=== PATIENT | male | born 1985 | race Caucasian/White ===

== ENCOUNTER 2020-04-04 08:55 | Outpatient (CLI) | payer BC, SELFPAY ==
[2020-04-04 10:27] LABS: Alanine Aminotransferase 95 U/L (4-50); Albumin Level 4.5 g/dL (3.5-5.1); Alkaline Phosphatase 95 U/L (38-126); Anion Gap 12 mmol/L (8-16); Aspartate Amino Transferase 47 U/L (17-59); Bilirubin,Total 0.4 mg/dL (0.2-1.3); Blood Urea Nitrogen 11 mg/dL (9-20); Calcium 9.2 mg/dL (8.4-10.2); Carbon Dioxide 25 mmol/L (22-30); Chloride 105 mmol/L (98-107); Cholesterol 225 mg/dL (0-200); Estimated Glomerular Filt Rate > 60; Glucose 104 mg/dL (75-110); HDL Direct 52 mg/dL; Lipase 63 U/L (23-300); Sodium 142 mmol/L (137-145); Triglycerides 113 mg/dL (<150)
[2020-04-04 10:38] LABS: LDL Cholesterol Direct 138 mg/dL
== END 2020-04-04 08:56 | disposition home or self-care (01) ==
PROVIDERS: PCP Internal Medicine; Visit Provider Internal Medicine
DX: R11.10 Vomiting, unspecified (principal); R19.7 Diarrhea, unspecified; Z79.899 Other long term (current) drug therapy; E78.5 Hyperlipidemia, unspecified
CPT/HCPCS: 36415; 80053; 80061; 83690

== ENCOUNTER 2020-04-08 08:21 | Outpatient (CLI) | payer BC, SELFPAY ==
--- NOTE | ~2020-04-08 | XR_ITS ---
EXAMINATION: XR UGIAC w barium swallow EXAM DATE: 04/08/2020 09:03 INDICATION: Episodes of vomiting, diarrhea. TECHNIQUE: Standard single and double contrast barium esophagram and upper GI examination was perform ed. The DAP for this procedure was 2.6 Gycm2. There is no prior study for comparison. FINDINGS: The pharynx is symmetric and without evidence of mass lesion or mucosal irregularity. Ther e is no esophageal stricture, diverticulum or mass identified. Small gastroesophageal hiatal hernia with small amount of reflux demonstrated. The stomach has a normal appearance without evidence of mass lesion, ulceration or filling defect. T here is normal rugal fold pattern. The duodenum and duodenal sweep are normal in appearance. There a re cholecystectomy clips. IMPRESSION: Small gastroesophageal hiatal hernia with small amount of reflux demonstrated. Reviewed, dictated and finalized at location A. IMPRESSION: Small gastroesophageal hiatal hernia with small amount of reflux de monstrated.
== END 2020-04-08 08:22 | disposition home or self-care (01) ==
PROVIDERS: PCP Internal Medicine; Visit Provider Internal Medicine
DX: R11.10 Vomiting, unspecified (principal); K21.9 Gastro-esophageal reflux disease without esophagitis
CPT/HCPCS: 74246

== ENCOUNTER 2021-01-08 09:26 | Outpatient (CLI) | payer BC, SELFPAY ==
[2021-01-08 10:11] LABS: Alanine Aminotransferase 25 U/L (4-50); Albumin Level 4.8 g/dL (3.5-5.1); Alkaline Phosphatase 71 U/L (38-126); Aspartate Amino Transferase 30 U/L (17-59); Bilirubin,Total 0.9 mg/dL (0.2-1.3)
== END 2021-01-08 09:27 | disposition home or self-care (01) ==
PROVIDERS: PCP Internal Medicine; Visit Provider Internal Medicine
DX: R79.89 Other specified abnormal findings of blood chemistry (principal)
CPT/HCPCS: 36415; 80076

== ENCOUNTER 2022-01-12 10:30 | Outpatient (CLI) | payer BC, SELFPAY ==
--- NOTE | 2022-01-12 10:52 | EST_ITS ---
Patient Info Name: Bebeto Ramsey Age: 36 years : 1985 Gender: Male Ht: 68 in Wt: 260 lbs BSA: 2.43 m2 HR: 78 bpm BP: 133 / 93 mmHg Heart Rhythm: Sinus Rhythm Exam Date: 01/12/2022 11:02 AM Exam Location: [facility] ([facility]) Stress Patient Status: Outpatient Admit Date: 01/12/2022 Staff Ordering Physician: Loreto Burch Attending Provider: Loreto Burch Referring Physician: Bradly Love DO; Exercise Technologist: Kim Lott CT Exercise Physician: Ishmael Jo DO Exam Type: CA stress test treadmill Study Info Indications R07.9 - Chest pain, unspecified A treadmill exercise stress test was performed. Summary 1. 1. Negative Sergio exercise stress test for ischemic ST changes by ECG criteria. 2. 2. Good functional capacity, achieving 10 METs of workload. 3. 3. Appropriate HR response to exercise. 4. 4. Appropriate HR recovery at 1 minute post exercise. 5. 5. No imaging with stress testing. 6. 6. Patient informed of the above results. Protocol: Sergio Stress ECG Details Stage: REST Duration (min): 1 min : 2 sec Speed (mph): 0.0 Grade (%): 0 HR (bpm): 77 SBP (mmHg): 133 DBP (mmHg): 93 METS: --- Stage: REST Duration (min): 14 min : 10 sec Speed (mph): 0.0 Grade (%): 0 HR (bpm): 86 SBP (mmHg): 133 DBP (mmHg): 93 METS: --- Stage: STAGE 1 Duration (min): 1 min : 0 sec Speed (mph): 1.7 Grade (%): 10 HR (bpm): 99 SBP (mmHg): 133 DBP (mmHg): 93 METS: --- Stage: STAGE 1 Duration (min): 2 min : 0 sec Speed (mph): 1.7 Grade (%): 10 HR (bpm): 110 SBP (mmHg): 133 DBP (mmHg): 93 METS: --- Stage: STAGE 1 Duration (min): 3 min : 0 sec Speed (mph): 1.7 Grade (%): 10 HR (bpm): 113 SBP (mmHg): 153 DBP (mmHg): 74 METS: --- Stage: STAGE 2 Duration (min): 1 min : 0 sec Speed (mph): 2.5 Grade (%): 12 HR (bpm): 120 SBP (mmHg): 153 DBP (mmHg): 74 METS: --- Stage: STAGE 2 Duration (min): 2 min : 0 sec Speed (mph): 2.5 Grade (%): 12 HR (bpm): 129 SBP (mmHg): 160 DBP (mmHg): 72 METS: --- Stage: STAGE 2 Duration (min): 3 min : 0 sec Speed (mph): 2.5 Grade (%): 12 HR (bpm): 134 SBP (mmHg): 160 DBP (mmHg): 72 METS: --- Stage: STAGE 3 Duration (min): 1 min : 0 sec Speed (mph): 3.4 Grade (%): 14 HR (bpm): 144 SBP (mmHg): 186 DBP (mmHg): 73 METS: --- Stage: STAGE 3 Duration (min): 2 min : 0 sec Speed (mph): 3.4 Grade (%): 14 HR (bpm): 154 SBP (mmHg): 186 DBP (mmHg): 73 METS: --- Stage: STAGE 3 Duration (min): 3 min : 0 sec Speed (mph): 3.4 Grade (%): 14 HR (bpm): 163 SBP (mmHg): 190 DBP (mmHg): 86 METS: --- Stage: STAGE 4 Duration (min): 0 min : 10 sec Speed (mph): 4.2 Grade (%): 16 HR (bpm): 166 SBP (mmHg): 190 DBP (mmHg): 86
[2022-01-12 12:41] LABS: Alanine Aminotransferase 43 U/L (6-50); Albumin Level 5.3 g/dL (3.5-5.1); Alkaline Phosphatase 74 U/L (38-126); Anion Gap 16 mmol/L (8-16); Aspartate Amino Transferase 38 U/L (17-59); Bilirubin,Total 0.9 mg/dL (0.2-1.3); Blood Urea Nitrogen 13 mg/dL (9-20); Calcium 9.4 mg/dL (8.4-10.2); Carbon Dioxide 18 mmol/L (22-30); Chloride 104 mmol/L (98-107); Cholesterol 321 mg/dL (0-200); Estimated Glomerular Filt Rate > 60; Glucose 113 mg/dL (65-110); HDL Direct 63 mg/dL; Potassium 4.1 mmol/L (3.4-5.0); Sodium 138 mmol/L (137-145); Triglycerides 221 mg/dL (<150)
[2022-01-12 12:52] LABS: LDL Cholesterol Direct 195 mg/dL
== END 2022-01-12 10:31 | disposition home or self-care (01) ==
LOC: ANHCARD 10:33
PROVIDERS: PCP Internal Medicine; Referring Provider Internal Medicine; Visit Provider Nurse Practitioner
DX: E78.5 Hyperlipidemia, unspecified (principal); Z13.6 Encounter for screening for cardiovascular disorders; R07.9 Chest pain, unspecified
CPT/HCPCS: 36415; 80053; 80061; 93017

== ENCOUNTER 2024-04-24 10:16 | Outpatient (CLI) | payer BC, SELFPAY ==
[2024-04-24 10:52] LABS: Basophils Absolute Auto 0.1 K/mm3 (0.0-0.1); Basophils Percent Auto 0.8 % (0.2-1.2); Eosinophils Absolute Auto 0.2 K/mm3 (0-0.3); Eosinophils Percent Auto 3.1 % (0-4.4); Hematocrit 46.3 % (42.0-52.0); Hemoglobin 16.1 g/dL (14.0-18.0); Immature Granulocyte Absolute 0.02 K/mm3 (0.00-0.031); Immature Granulocyte Percent A 0.3 % (0-0.5); Lymphocytes Absolute Auto 1.83 K/mm3 (0.9-3.2); Lymphocytes Percent Auto 30.2 % (18.3-44.2); Mean Corpuscular HGB Conc 34.8 g/dl (32-36); Mean Corpuscular Hemoglobin 31.6 pg (26-34); Mean Platelet Volume 9.2 fl (7.4-10.4); Monocytes Absolute Auto 0.5 K/mm3 (0.1-0.6); Monocytes Percent Auto 7.8 % (2.6-8.5); Neutrophils Absolute Auto 3.5 K/mm3 (1.3-6.7); Neutrophils Percent Auto 57.8 % (45.5-73.1); Platelet Count Result 241 k/mm3 (150-375); Red Blood Count 5.09 M/mm3 (4.6-6.20); Red Cell Distribution Width 12.3 % (11.5-14.5); White Blood Count 6.1 K/mm3 (4.5-10.0)
[2024-04-24 11:13] LABS: Add Urine Microscopic? NO; Appearance Urine Clear (Clear); Bilirubin Urine Negative (Negative); Blood Urine Negative (Negative); Color Urine Yellow (Yellow); Glucose Urine UA Negative (Negative); Ketones Urine Negative (Negative); Leukocyte Esterase Ur Negative LEU/UL (Negative); Nitrate Urine Negative (Negative); Protein Urine Negative (Negative); Specific Grav Ur 1.025 (1.001-1.035); Urobilinogen Urine 0.2 mg/dL (<2.0)
[2024-04-24 11:41] LABS: Vitamin D 25 Hydroxy 33.3 ng/mL
[2024-04-24 13:22] LABS: Hemoglobin A1C 5.5 % (<5.7)
[2024-04-24 22:15] LABS: Alanine Aminotransferase 40 U/L (6-50); Albumin Level 4.8 g/dL (3.5-5.1); Alkaline Phosphatase 72 U/L (38-126); Anion Gap 10 mmol/L (4-12); Aspartate Amino Transferase 33 U/L (17-59); Bilirubin,Total 0.5 mg/dL (0.2-1.3); Blood Urea Nitrogen 14 mg/dL (9-20); Calcium 9.3 mg/dL (8.4-10.2); Carbon Dioxide 25 mmol/L (22-30); Chloride 102 mmol/L (98-107); Cholesterol 276 mg/dL (0-200); Estimated Glomerular Filt Rate > 60; Glucose 106 mg/dL (65-110); HDL Direct 50 mg/dL; Potassium 4.2 mmol/L (3.4-5.0); Sodium 137 mmol/L (137-145); Triglycerides 199 mg/dL (<150)
[2024-04-24 22:25] LABS: LDL Cholesterol Direct 167 mg/dL
[2024-04-24 22:45] LABS: Prostate Specific Antigen 0.5 ng/mL (< OR = 4.0)
[2024-04-24 23:21] LABS: Folic Acid 5.9 ng/mL (2.76->20)
[2024-04-26 14:03] LABS: CRP, High Sensitivity 4.1 mg/L
[2024-04-30 12:22] LABS: Testosterone Free 81.9 pg/mL (35.0-155.0); Testosterone Total 502 ng/dL (250-1100)
== END 2024-04-24 10:17 | disposition home or self-care (01) ==
PROVIDERS: PCP Nurse Practitioner Family; Visit Provider Nurse Practitioner Family
DX: Z00.00 Encounter for general adult medical examination without abnormal findings (principal); N40.0 Benign prostatic hyperplasia without lower urinary tract symptoms; R53.83 Other fatigue; E78.5 Hyperlipidemia, unspecified; R30.0 Dysuria; E03.9 Hypothyroidism, unspecified; R73.01 Impaired fasting glucose; Z68.41 Body mass index [BMI] 40.0-44.9, adult; R79.89 Other specified abnormal findings of blood chemistry; Z79.899 Other long term (current) drug therapy; Z82.49 Family history of ischemic heart disease and other diseases of the circulatory system
CPT/HCPCS: 36415; 80053; 80061; 81003; 82306; 82607; 82746; 83036; 84153; 84402; 84403; 84443; 85025; 86141; 87086

== ENCOUNTER 2024-07-22 08:51 | Outpatient (CLI) | payer BC, SELFPAY ==
--- NOTE | 2024-07-22 | ECHO_ITS ---
Patient Info Name: Bebeto Ramsey Age: 39 years : 1985 Gender: Male Ht: 68 in Wt: 265 lbs BSA: 2.46 m2 BP: 147 / 98 mmHg Technical Quality: Good Exam Date: 07/22/2024 10:08 AM Exam Location: Echo Lab Patient Status: Outpatient Admit Date: 07/22/2024 Staff Ordering Physician: Ishmael Jo DO Occupational Therapy Aide: Glenda Burleson RDCS Attending Provider: Ishmael Jo DO Referring Physician: Sandro FERNANDEZ; Exam Type: CA echo doppler color flow Study Info Indications R06.09 - Other forms of dyspnea Complete two-dimensional, color flow and Doppler transthoracic echocardiogram is performed. Strain analysis performed. Summary 1. Complete two-dimensional, color flow and Doppler transthoracic echocardiogram is performed. 2. Left ventricular chamber dimension is normal. 3. Left ventricular systolic function is normal, estimated at 60-65%. 4. There is mild concentric increased left ventricular wall thickness. 5. The left ventricular diastolic function is grade I diastolic dysfunction. 6. E/e' 6 is not elevated. 7. Global longitudinal strain is abnormal at -15.0%. 8. No pulmonary hypertension, estimated pulmonary arterial systolic pressure is 17 mmHg. Left Ventricle E/e' 6 is not elevated. Global longitudinal strain is abnormal at -15.0%. Left ventricular chamber dimension is normal. Left ventricular systolic function is normal, estimated at 60-65%. There is mild concentric increased left ventricular wall thickness. The left ventricular diastolic function is grade I diastolic dysfunction. Right Ventricle Right ventricular chamber dimension is normal. Right ventricular systolic function is normal. Left Atria Left atrial chamber dimension is normal. Right Atria Right atrial chamber dimension is normal. Aortic Valve The aortic valve is trileaflet. There is no aortic valve stenosis. There is no aortic valve regurgitation. Pulmonic Valve There is no pulmonic regurgitation. Mitral Valve There is no mitral valve stenosis. There is no mitral valve regurgitation. Tricuspid Valve There is no tricuspid valve regurgitation. No pulmonary hypertension, estimated pulmonary arterial systolic pressure is 17 mmHg. Pericardium/Pleural There is no pericardial effusion. Inferior Vena Cava Normal inferior vena cava with >50% collapse upon inspiration consistent with normal right atrial pressure, 5 mmHg. Aorta The aortic root size at the sinus of Valsalva is normal. Left Ventricular Outflow Tract Name Value Normal LVOT 2D LVOT Diameter 2.1 cm LVOT Doppler LVOT Peak Gradient 3 mmHg LVOT Mean Gradient 2 mmHg LVOT VTI 15 cm LVOT VTI/AV VTI Ratio 0.9 LVOT Stroke Volume 50 ml LVOT CO 4.5 l/min LVOT CI 1.8 l/min/m2 Pulmonic Valve Name Value Normal RVOT Doppler RVOT Peak Gradient 2 mmHg PV Doppler PV Peak Gradient 4 mmHg Mitral Valve Name Value Normal MV Doppler MV Decel [place] 366 cm/s2 MV PHT 38 ms MV Area (PHT) 5.9 cm2 4.0-5.0 MV Diastolic Function MV E Peak Velocity 47 cm/s MV A Peak Velocity 63 cm/s MV E/A 0.8 MV Decel Time 129 ms Tricuspid Valve Name Value Normal TV Regurgitation Doppler TR Peak Velocity 171 cm/s TR Peak Gradient 12 mmHg Estimated PAP/RSVP RA Pressure 5 mmHg <=5 PA Systolic Pressure 17 mmHg <36 RV Systolic Pressure 17 mmHg <36 Aorta Name Value Normal Ascending Aorta Ao Root Diameter (MM) 3.7 cm Ao Root Diam Index (MM) 1.5 cm/m2 Aortic Valve Name Value Normal AV Doppler AV Peak Velocity 102 cm/s AV Peak Gradient 4 mmHg AV Mean Gradient 2 mmHg AV VTI 17 cm AV Area (Cont Eq VTI) 2.9 cm2 >=3.0 AV Area (Cont Eq Sebas) 2.7 cm2 AV Regurgitation 2D LVOT Area 3.3 cm2 Ventricles Name Value Normal LV Dimensions 2D/MM IVS Diastolic Thickness (2D) 1.2 cm 0.6-1.0 IVS Diastole Thickness (MM) 1.3 cm 0.6-1.0 LVID Diastole (2D) 3.9 cm 4.2-5.8 LVID Diastole (MM) 5.6 cm 4.2-5.8 LVIW Diastolic Thickness (2D) 1.1 cm 0.6-1.0 LVIW Diastolic Thickness (MM) 0.8 cm 0.6-1.0 LVID Systole (2D) 2.5 cm 2.5-4.0 LVID Systole (MM) 3.4 cm 2.5-4.0 LVOT Diameter 2.1 cm LV Mass (2D Cubed) 150.42 g 88.00-224.00 LV Mass Index (2D Cubed) 61 g/m2 49-115 Relative Wall Thickness (2D) 0.57 LV Mass (MM Cubed) 238.82 g 88.00-224.00 LV Mass Index (MM Cubed) 97 g/m2 49-115 Relative Wall Thickness (MM) 0.30 LV Fractional Shortening/Ejection Fraction 2D/MM LV Fractional Shortening (2D) 37 % 25-43 LV Fractional Shortening (MM) 40 % 25-43 LV EF (MM Teicholz) 69 % 52-72 LV EF (2D Teicholz) 67 % 52-72 LV Diastolic Volume (4C MOD) 110 ml LV EF (4C MOD) 55 % LV Diastolic Volume (2C MOD) 93 ml LV EF (2C MOD) 60 % LV Diastolic Volume (BP MOD) 102 ml 62-150 LV Diastolic Volume Index (BP MOD) 42 ml/m2 34-74 LV Systolic Volume (BP MOD) 43 ml 21-61 LV Systolic Volume Index (BP MOD) 18 ml/m2 11-31 LV EF (BP MOD) 57 % 52-72 LV Diastolic Length (4C) 8.5 cm LV Systolic Length (4C) 6.9 cm LV Stroke Volume (4C MOD) 60 ml LV CO (BP MOD) 61.6 l/min LV CI (BP MOD) 25.1 l/min/m2 Atria Name Value Normal LA Dimensions LA Dimension (MM) 4.1 cm 3.0-4.1 LA Volume (4C A-L) 57 ml LA Volume (BP A-L) 49 ml RA Dimensions RA Area (4C) 14.3 cm2 <=18.0 EchoPAC Name Value Normal AutoEF LVCO_BiP_Q (Hxhv7FVF) 6.2 l/min LVEF_BiP_Q (Rqil6DBW) 58 % LVSV_BiP_Q (Nije9VPW) 70 ml LVVED_BiP_Q (Zpcs4XSR) 121 ml LVVES_BiP_Q (Rglz7IUQ) 51 ml HR_4Ch_Q (Juim5TRU) 91 bpm LVCO_4Ch_Q (Espd4VVF) 6.7 l/min LVEF_4Ch_Q (Zhlx7GMK) 58 % LVLd_4Ch_Q (Jrnw1CSG) 8.3 cm LVLs_4Ch_Q (Miyr5GKI) 7.0 cm LVSV_4Ch_Q (Vqyg5FDB) 73 ml LVVED_4Ch_Q (Hfjo1GGO) 127 ml LVVES_4Ch_Q (Nmts1EVN) 53 ml HR_2Ch_Q (Dqox3PIQ) 88 bpm LVCO_2Ch_Q (Fazp7GKS) 5.7 l/min LVEF_2Ch_Q (Fcsx7AFI) 57 % LVLd_2Ch_Q (Qpvh4OGK) 8.5 cm LVLs_2Ch_Q (Dtyq0QLM) 7.0 cm LVSV_2Ch_Q (Ekpp8EJH) 65 ml LVVED_2Ch_Q (Hcav6EUZ) 114 ml LVVES_2Ch_Q (Ltqq2TYU) 49 ml CUBA AA peak sys SL (AWMA) 17.7 % AAS peak sys SL (AWMA) 22.4 % AI peak sys SL (AWMA) 22.7 % AL peak sys SL (AWMA) 18.5 % AP peak sys SL (AWMA) 12.7 % peak sys SL (AWMA) 25.3 % AVC (AWMA) 328 ms BA peak sys SL (AWMA) 17.6 % BAS peak sys SL (AWMA) 20.5 % BI peak sys SL (AWMA) 10.3 % BL peak sys SL (AWMA) 18.8 % BP peak sys SL (AWMA) 11.3 % BS peak sys SL (AWMA) 3.0 % G peak SL(A2C) (AWMA) 17.0 % G peak SL(A4C) (AWMA) 14.8 % G peak SL(APLAX) (AWMA) 13.4 % G peak SL(Avg) (AWMA) 15.1 % MA peak sys SL (AWMA) 15.7 % MAS peak sys SL (AWMA) 18.2 % CA peak sys SL (AWMA) 22.2 % ML peak sys SL (AWMA) 17.4 % MP peak sys SL (AWMA) 9.1 % MS peak sys SL (AWMA) 12.2 % Report Signatures
--- NOTE | 2024-07-22 08:54 | EST_ITS ---
Patient Info Name: Bebeto Ramsey Age: 39 years : 1985 Gender: Male Ht: 68 in Wt: 265 lbs BSA: 2.46 m2 HR: 71 bpm BP: 134 / 88 mmHg Exam Date: 07/22/2024 9:33 AM Exam Location: Echo Lab Patient Status: Outpatient Admit Date: 07/22/2024 Staff Ordering Physician: Ishmael Jo DO Attending Provider: Ishmael Jo DO Exercise Technologist: Corrie Pope RDCS Exercise Physician: Ishmael Jo DO Exam Type: CA stress test treadmill Study Info A treadmill exercise stress test was performed. Summary 1. 1. Negative Sergio exercise stress test for ischemic ST changes by ECG criteria. 2. 2. Reduced functional capacity, achieving 10 METs of workload. 3. 3. Appropriate HR response to exercise. 4. 4. Appropriate HR recovery at 1 minute post exercise. 5. 5. No imaging with stress testing. 6. 6. Patient informed of the above results. Protocol: Sergio Stress ECG Details Stage: REST Duration (min): 1 min : 18 sec Speed (mph): 0.0 Grade (%): 0 HR (bpm): 76 SBP (mmHg): 134 DBP (mmHg): 88 METS: --- Stage: REST Duration (min): 3 min : 46 sec Speed (mph): 0.0 Grade (%): 0 HR (bpm): 86 SBP (mmHg): 134 DBP (mmHg): 88 METS: --- Stage: STAGE 1 Duration (min): 1 min : 0 sec Speed (mph): 1.7 Grade (%): 10 HR (bpm): 106 SBP (mmHg): 134 DBP (mmHg): 88 METS: --- Stage: STAGE 1 Duration (min): 2 min : 0 sec Speed (mph): 1.7 Grade (%): 10 HR (bpm): 111 SBP (mmHg): 134 DBP (mmHg): 88 METS: --- Stage: STAGE 1 Duration (min): 3 min : 0 sec Speed (mph): 1.7 Grade (%): 10 HR (bpm): 118 SBP (mmHg): 170 DBP (mmHg): 81 METS: --- Stage: STAGE 2 Duration (min): 1 min : 0 sec Speed (mph): 2.5 Grade (%): 12 HR (bpm): 130 SBP (mmHg): 170 DBP (mmHg): 81 METS: --- Stage: STAGE 2 Duration (min): 2 min : 0 sec Speed (mph): 2.5 Grade (%): 12 HR (bpm): 141 SBP (mmHg): 183 DBP (mmHg): 78 METS: --- Stage: STAGE 2 Duration (min): 3 min : 0 sec Speed (mph): 2.5 Grade (%): 12 HR (bpm): 141 SBP (mmHg): 183 DBP (mmHg): 78 METS: --- Stage: STAGE 3 Duration (min): 1 min : 0 sec Speed (mph): 3.4 Grade (%): 14 HR (bpm): 155 SBP (mmHg): 194 DBP (mmHg): 82 METS: --- Stage: STAGE 3 Duration (min): 2 min : 0 sec Speed (mph): 3.4 Grade (%): 14 HR (bpm): 159 SBP (mmHg): 194 DBP (mmHg): 82 METS: --- Stage: STAGE 3 Duration (min): 3 min : 0 sec Speed (mph): 3.4 Grade (%): 14 HR (bpm): 163 SBP (mmHg): 197 DBP (mmHg): 86 METS: --- Stage: STAGE 4 Duration (min): 0 min : 1 sec Speed (mph): 4.2 Grade (%): 16 HR (bpm): 164 SBP (mmHg): 197 DBP (mmHg): 86 METS: --- Stage: RECOVERY Duration (min): 0 min : 58 sec Speed (mph): 0.0 Grade (%): 0 HR (bpm): 143 SBP (mmHg): 197 DBP (mmHg): 86 METS: --- Stage: RECOVERY Duration (min): 1 min : 58 sec Speed (mph): 0.0 Grade (%): 0 HR (bpm): 118 SBP (mmHg): 197 DBP (mmHg): 86 METS: --- Stage: RECOVERY Duration (min): 2 min : 58 sec Speed (mph): 0.0 Grade (%): 0 HR (bpm): 110 SBP (mmHg): 190 DBP (mmHg): 80 METS: --- Stage: RECOVERY Duration (min): 3 min : 58 sec Speed (mph): 0.0 Grade (%): 0 HR (bpm): 109 SBP (mmHg): 155 DBP (mmHg): 79 METS: --- Stage: RECOVERY Duration (min): 4 min : 2 sec Speed (mph): 0.0 Grade (%): 0 HR (bpm): 108 SBP (mmHg): 155 DBP (mmHg): 79 METS: --- Rest HR: 86 bpm Peak HR: 164 bpm Rest Sys BP: 134 mmHg Peak Sys BP: 197 mmHg Max Pred HR: 179 bpm % Max Pred HR: 92 % Target HR: 152 bpm Max RPP: 32,308 bpm*mmHg Carlos Score: -7 Termination Reason: Reached target heart rate or workload Cardiac Symptoms: Shortness of breath Max ST Seg Deviation: 3.30 mm Total Time: 9 min : 1 sec Rest Sepulveda BP: 88 mmHg Peak Sepulveda BP: 86 mmHg Angina Score: None Total METS: 10.3 Resting ECG Sinus rhythm, RBBB. Stress ECG No ST changes. Arrhythmias None. Report Signatures
== END 2024-07-22 08:52 | disposition home or self-care (01) ==
LOC: ANHCARD 08:53
PROVIDERS: PCP Nurse Practitioner Family; Visit Provider Internal Medicine Cardiovascular Disease
DX: R94.39 Abnormal result of other cardiovascular function study (principal); I42.1 Obstructive hypertrophic cardiomyopathy; I51.89 Other ill-defined heart diseases
CPT/HCPCS: 93017; 93306

== ENCOUNTER 2025-02-05 07:36 | Outpatient (CLI) | payer BC, SELFPAY ==
--- OUTSIDE RECORDS SUMMARY | 2025-02-05 07:40 | XMS_ITS | Clinical Summary ---
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
--- OUTSIDE RECORDS SUMMARY | 2025-02-05 07:40 | XMS_ITS | Referral Summary ---
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
--- OUTSIDE RECORDS SUMMARY | 2025-02-05 07:40 | XMS_ITS | Clinical Summary ---
Author Organization [facility] Address [address] [facility] [place] [address] Care Team Providers Care Hydraulic Design Engineer Name Role Phone Unavailable Primary Care Provider Unavailabl e Source Comments [facility],non-owned Affiliates and Associated Physician Practices is amultiple site organization consisting of ambulatory clinics and hospital sitesin [place], [place], [place] and [place]. This disclosure is being madepursuant to the Care Everywhere program and may not contain all information available regarding this patient. Last updated 18.[employer] [facility] Medications * Be aware that medications may not be up to date on this document. Alwaysverify current medications with the patient. 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 Social History Tobacco Use Types Packs/Day Years Used Date Smoking Tobacco: Never Smokeless Tobacco: Never Sex and Gender Information Value Date Recorded Sex Assigned at Not on file Legal Sex Male 7:18 PM JOB HAND Gender Identity Not on file Sexual Orientation Not on file Last Filed Vital Signs Vital Sign Reading Time Taken Comments Blood Pressure 145/87 10/17/2018 2:02 PM CDT Pulse 81 10/17/2018 2:02 PM CDT Temperature 36.8 C (98.3 F) 10/17/2018 2:02 PM CDT Respiratory Rate 18 10/17/2018 2:02 PM CDT Oxygen Saturation 98% 10/17/2018 2:02 PM CDT Inhaled Oxygen Concentration - - Weight 126.2 kg (278 lb 4.8 oz) 10/17/2018 2:02 PM CDT Height 172.7 cm (5' 8) 10/17/2018 2:02 PM CDT Body Mass Index 42.32 10/17/2018 2:02 PM CDT Plan of Treatment Health Maintenance Due Date Last Done Comments LIPID TESTING 1985 HIV SCREENING 1998 HEPATITIS C SCREENING 06/05/2001 DTAP/TDAP/TD VACCINES (1 - Tdap) 2002 HEPATITIS B VACCINE (1 of 3 - 19+ 3-dose series) 2002 HPV VACCINE (1 - 3-dose SCDM series) 2010 COVID-19 VACCINE (1 - 2023-2 5 season) 2024 DEPRESSION SCREENING 07/10/2024 INFLUENZA VACCINE (#1) 2025 ZOSTER VACCINE (1 of 2) 2033 HIB VACCINE Aged Out No longer eligi ble based on patient's age to complete this topic MENINGOCOCCAL (Group B) VACC INE SHARED DECISION-MAKING Aged Out No longer eligibl e based on patient's age to complete this topic MENINGOCOCCAL GROUPS A/C/Y/W VACCINE Aged Out No longer eligible b ased on patient's age to complete this topic PNEUMOCOCCAL VACCINE Aged Out No long er eligible based on patient's age to complete this topic Insurance [facility] ANTHEM
[2025-02-05 11:38] LABS: Alanine Aminotransferase 47 U/L (6-50); Albumin Level 4.8 g/dL (3.5-5.1); Alkaline Phosphatase 60 U/L (38-126); Anion Gap 9 mmol/L (4-12); Aspartate Amino Transferase 41 U/L (17-59); Bilirubin,Total 0.7 mg/dL (0.2-1.3); Blood Urea Nitrogen 13 mg/dL (9-20); Calcium 9.4 mg/dL (8.4-10.2); Carbon Dioxide 23 mmol/L (22-30); Chloride 104 mmol/L (98-107); Cholesterol 309 mg/dL (0-200); Estimated Glomerular Filt Rate > 60; Glucose 91 mg/dL (65-110); HDL Direct 60 mg/dL; Potassium 4.3 mmol/L (3.4-5.0); Sodium 136 mmol/L (137-145); Total Protein 8.6 g/dL (6.3-8.2); Triglycerides 136 mg/dL (<150)
== END 2025-02-05 07:37 | disposition home or self-care (01) ==
PROVIDERS: PCP Nurse Practitioner Family; Referring Provider Internal Medicine Cardiovascular Disease; Visit Provider Nurse Practitioner Family
DX: E78.2 Mixed hyperlipidemia (principal); I51.89 Other ill-defined heart diseases; Z82.49 Family history of ischemic heart disease and other diseases of the circulatory system; Z68.41 Body mass index [BMI] 40.0-44.9, adult; N40.1 Benign prostatic hyperplasia with lower urinary tract symptoms; R39.11 Hesitancy of micturition; G47.10 Hypersomnia, unspecified
CPT/HCPCS: 36415; 80053; 80061